=== PATIENT | male | born 1960 | race Hispanic/Latino ===

== ENCOUNTER 2018-05-02 11:45 | Inpatient (IN) | payer OTHER, MEDICARE ==
[2018-05-02 11:45] VITALS: BMI 35.0
[2018-05-02 12:51] LABS: URINE BILIRUBIN NEGATIVE (NEGATIVE); URINE BLOOD NEGATIVE (NEGATIVE); URINE CLARITY Clear (Clear); URINE COLOR Colorless (YELLOW); URINE GLUCOSE (UA) NORMAL (Normal); URINE LEUKOCYTE ESTERASE NEG Leu/uL (Negative); URINE PROTEIN NEGATIVE (NEGATIVE); URINE UROBILINOGEN NORMAL mg/dL (0.2-1.0)
--- NOTE | 2018-05-02 12:57 | C.PDOC ---
History Of Present Illness 57 year old male presents to the ED requesting alcohol detox. Patient reports last use was this morning. Patient has already been prescreened and denies any suicidal/homicidal ideation at this time. Chief Complaint (Nursing): Substance Abuse History Per: Patient History/Exam Limitations: no limitations Onset/Duration Of Symptoms: Hrs Current Symptoms Are (Timing): Still Present Suicide/Self Injury Attempted (Context): None Modifying Factor(s): Alcohol Associated Symptoms: denies: Suicidal Thoughts, Suicidal Plan Involuntary Hold By: None Recent travel outside of the [place]: No Additional History Per: Patient Past Medical History Reviewed: Historical Data, Nursing Documentation, Vital Signs Vital Signs: Last Vital Signs Temp 98.2 F 05/02/18 12:04 Pulse 96 H 05/02/18 12:04 Resp 20 05/02/18 12:04 BP 118/76 05/02/18 12:04 Pulse Ox 95 05/02/18 12:04 - Medical History PMH: Anxiety, COPD, Depression (pt is on xanax for 5 years), HTN, Pneumonia Denies: Cardia Arrhythmia, CHF, Hypercholesterolemia, Kidney Stones, Mitral Valve Prolapse, Peripheral Edema, Chronic Kidney Disease, Sexually Transmitted Disease Surgical History: No Surg Hx Denies: Coronary Stent, Pacemaker - [facility] Procedures CARDIOPULM RESUSCITA NOS (08/01/13) CONTINUOUS INVASIVE MECHANICAL VENTILATION <96 CONSEC HRS (08/01/13) CORONAR ARTERIOGR-2 CATH (05/30/00) INCIS W REM OF FORIEGN BODY OR DEV FROM SKIN & SUBCUT TISSUE (04/20/13) INSERT ENDOTRACHEAL TUBE (08/01/13) INSERT INTERCOSTAL CATH (04/20/13) LARYGNOSCOPY AND OTH TRACHEOSCOPY (08/01/13) LEFT HEART CARDIAC CATH (05/30/00) LT HEART ANGIOCARDIOGRAM (05/30/00) PEDICLE GRAFT/FLAP NOS (07/14/01) RADICAL EXCIS SKIN LES (07/14/01) THORACENTESIS (04/20/13) Family History: States: Unknown Family Hx - Social History Hx Tobacco Use: Yes Hx Alcohol Use: Yes (10 beers daily) Hx Substance Use: No - Immunization History Hx Tetanus Toxoid Vaccination: No Hx Influenza Vaccination: Yes Hx Pneumococcal Vaccination: Yes Review Of Systems Psych: Positive for: Other (alcohol detox ). Negative for: Suicidal ideation Physical Exam - Physical Exam Appears: Non-toxic, No Acute Distress Skin: Normal Color, Warm, Dry Head: Atraumatic, Normacephalic Eye(s): bilateral: Normal Inspection Oral Mucosa: Moist, Other (alcohol on breath ) Neck: Supple Chest: Symmetrical, No Deformity, No Tenderness Cardiovascular: Rhythm Regular Respiratory: Normal Breath Sounds Extremity: Normal ROM Neurological/Psych: Oriented x3, Normal Speech, Normal Cognition, Other (calm, cooperative ) ED Course And Treatment - Laboratory Results Result Diagrams: 05/02/18 13:07 05/02/18 13:07 O2 Sat by Pulse Oximetry: 95 (on RA ) Pulse Ox Interpretation: Normal Progress Note: Bloodwork and urinalysis ordered and reviewed. Patient is medically cleared and is stable for detox admission. 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 Disposition - Disposition Disposition: HOSPITALIZED Disposition Time: 14:00 Condition: STABLE - Clinical Impression Clinical Impression: Alcohol dependence - PA / [employer]GUARD / Resident Statement MD/DO has reviewed & agrees with the documentation as recorded. - Scribe Statement The provider has reviewed the documentation as recorded by the Scribe (Radha Elizabeth) All medical record entries made by the Scribe were at my direction and personally dictated by me. I have reviewed the chart and agree that the record accurately reflects my personal performance of the history, physical exam, medical decision making, and the department course for this patient. I have also personally directed, reviewed, and agree with the discharge instructions and disposition. Decision To Admit - Pt Status Changed To: Hospital Disposition Of: Inpatient - Admit Certification Admit to Inpatient:: After my assessment, the patient will require hospitalization for at least two midnights. This is because of the severity of symptoms shown, intensity of services needed, and/or the medical risk in this patient being treated as an outpatient. - InPatient: Physician Admission Certification: I certify that this patient requires 2 or more midnights of care for the following reason:: needs more than 2 days of detox - . Bed Request Type: Detox Admitting Physician: Kira Vernon Patient Diagnosis: Alcohol dependence
[2018-05-02 13:04] LABS: BARBITURATES, UR NEGATIVE (NEGATIVE); OPIATES, UR NEGATIVE (NEGATIVE); PHENCYCLIDINE, UR NEGATIVE (NEGATIVE)
[2018-05-02 13:13] LABS: BASO % 0.5 % (0.0-2.0); EOS # 0.2 K/uL (0.0-0.7); EOS % 1.9 % (0.0-4.0); HEMOGLOBIN 16.3 g/dL (12.0-18.0); LYMPH # 1.6 K/uL (1.0-4.3); LYMPH % 16.8 % (20.0-40.0); MEAN CELL VOLUME 97.6 fL (80.0-94.0); MEAN CORPUSCULAR HEMOGLOBIN 33.4 pg (27.0-31.0); MEAN CORPUSCULAR HGB CONC 34.2 g/dL (33.0-37.0); MEAN PLATELET VOLUME 9.1 fL (7.2-11.7); MONO # 0.8 K/uL (0.0-0.8); MONO % 8.7 % (0.0-10.0); NEUT # 6.7 K/uL (1.8-7.0); NEUT % 72.1 % (50.0-75.0); RBC 4.87 Mil/uL (4.40-5.90); RED CELL DISTRIBUTION WIDTH 13.4 % (11.5-14.5); WHITE BLOOD COUNT 9.3 K/uL (4.8-10.8)
[2018-05-02 13:28] LABS: ALB/GLOB RATIO 1.7 (1.0-2.1); ALBUMIN 4.6 g/dL (3.5-5.0); ALT/SGPT 67 U/L (21-72); AST/SGOT 61 U/L (17-59); BLOOD UREA NITROGEN 13 mg/dL (9-20); CALCIUM 9.1 mg/dl (8.6-10.4); GFR NON-AFRICAN AMERICAN > 60
[2018-05-02 13:40] LABS: BENZODIAZEPINES, UR POSITIVE (NEGATIVE)
[2018-05-02] MEDS ORDERED: Albuterol HFA 90 mcg/actuation (8 g) INH PRN (15:02)
--- NOTE | 2018-05-02 15:17 | PCM.BM ---
<Torrie Herreran - Last Filed: 05/02/18 15:14> Treatment Plan Problems - Problems identified on initial assessmt anxiety related to alcohol abuse Date Initiated: 05/02/18 Time Initiated: 15:16 Assessment reference: NA Status: Active self-care deficit Date Initiated: 05/02/18 Time Initiated: 15:16 Assessment reference: NA Status: Active abnormal vital signs Date Initiated: 05/02/18 Time Initiated: 15:16 Assessment reference: NA Status: Active Treatment assets and liabiliti Patient Assests: cooperative, ADL independent, good support system, negotiates basic needs, cognitively intact Patient Liabilities: substance abuse, medical problems - Milieu Protocol Maintain good personal hygiene: daily Encourage regular showers, daily Remind patient to perform daily oral care, daily Assist patient to perform ADL's Maintain personal safety: every shift Educate patient to report safety concerns to staff, every shift Monitor environment for contraband/sharps Medication safety: Monitor for expected outcome, potential side effects: every shift, Assess barriers to learning: every shift, Assess readiness for medication education: every shift <Kira Vernon - Last Filed: 05/03/18 14:53> - Diagnosis (1) Alcohol dependence Status: Acute Interventions: 05/03/18 14:53 * Assess 7x/week regarding severity of withdrawal * Educate regarding risks, benefits, side effects and alternatives of medications * Use Motivational Interviewing for abstinence * Use CBT for relapse prevention * Medication management for withdrawal symptoms * Encourage medication assisted treatment *
[2018-05-02] MEDS ORDERED: Pneumococcal 23-Valent Vaccine IM ONE (15:30)
[2018-05-02] MEDS ORDERED: Influenza Vaccine 60 mcg/0.5 mL SYR (4YR UP) IM ONE (15:30)
[2018-05-02] MEDS: Multiple Vitamins Tab PO SCH (15:37)
[2018-05-02] MEDS ORDERED: Albuterol-Ipratrop 20 mcg/actuation (4 g) IH SCH (16:00)
[2018-05-02] MEDS ORDERED: Albuterol-Ipratrop 20 mcg/actuation (4 g) INH PRN (17:16)
[2018-05-03] MEDS: Multiple Vitamins Tab PO SCH (09:36)
[2018-05-03] MEDS: ANORO ELLIPTA 62.5 MCG/25 MCG INH SCH (10:35)
[2018-05-03] MEDS: Albuterol-Ipratrop 20 mcg/actuation (4 g) INH PRN (10:36)
[2018-05-03] MEDS: Aluminum Hydroxide/Magnesium Hydroxide Susp (30 mL) PO PRN ×2 (11:32→21:18)
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
[2018-05-04] MEDS: ANORO ELLIPTA 62.5 MCG/25 MCG INH SCH (09:32)
[2018-05-04] MEDS: Multiple Vitamins Tab PO SCH (09:33)
[2018-05-04] MEDS: Albuterol-Ipratrop 20 mcg/actuation (4 g) INH PRN (09:34)
--- NOTE | 2018-05-04 11:32 | PCM.PYCHPN ---
Psychiatric Progress Note - Psychiatric Progress Note Patient seen today, length of contact: 16 min Patient Chief Complaint: "I am not well" Problems Identified/Issues Discussed: The pt is seen, chart reviewed, case discussed with staff. The pt is compliant with medications and reports no side-effects. Symptoms are improving but needs more time to stabilize. Pt attends groups and activities. Support given, psycho-education provided. After care discussed. Medication Change: Yes (detox changes daily) Medical Record Reviewed: Yes Mental Status Examination - Cognitive Function Orientation: Person, Place, Situation, Time Memory: Intact Attention: WNL Concentration: Poor Association: WNL Fund of Knowledge: WNL - Mood Mood: Depressed - Affect Affect: Constricted - Speech Speech: Appropriate - Formal Thought Process Formal Thought Process: No Impairment - Suicidal Ideation Suicidal Ideation: No - Homicidal Ideation Homicidal Ideation: No Goal/Treatment Plan - Goal/Treatment Plan Need for Continued Stay: Discharge may exacerbated symptoms, Severe functional impairment Progress Toward Problem(s) and Goals/Treatment Plan: Taper with Librium Started on Prozac, Abilify, Clonidine. Gabapentin for augmentation As needed medications including Albuterol/Ipratropium, Maalox, and Trazodone. All risks, benefits and alternatives of the meds discussed, and the pt agreed and understood. Attend groups and activities Supportive therapy and psychoeducation MO for abstinence CBT for relapse prevention Encourage MAT, ie naltrexone or antabuse Refer to rehab or IOP, and self-help groups Teach healthy lifestyle methods, i.e. diet, exercise, meditation Smoking cessation with MO Nicotine patch Estimated Date of D/C: 05/07/18
[2018-05-04] MEDS ORDERED: Bacitracin 500 Units/gm Oint Foilpak UD TOP PRN (14:50)
[2018-05-05] MEDS: Albuterol-Ipratrop 20 mcg/actuation (4 g) INH PRN ×3 (02:03→13:53)
[2018-05-05] MEDS: ANORO ELLIPTA 62.5 MCG/25 MCG INH SCH (10:03)
[2018-05-05] MEDS: Multiple Vitamins Tab PO SCH (10:04)
[2018-05-05] MEDS: Aluminum Hydroxide/Magnesium Hydroxide Susp (30 mL) PO PRN ×2 (10:28→20:16)
--- NOTE | 2018-05-05 12:18 | PCM.PYCHPN ---
Psychiatric Progress Note - Psychiatric Progress Note Patient seen today, length of contact: 16 min Patient Chief Complaint: "I am not well" Problems Identified/Issues Discussed: The pt is seen, chart reviewed, case discussed with staff. The pt is compliant with medications and reports no side-effects. Symptoms are improving but needs more time to stabilize. Pt attends groups and activities. Support given, psycho-education provided. After care discussed. Medication Change: Yes (detox changes daily) Medical Record Reviewed: Yes Mental Status Examination - Cognitive Function Orientation: Person, Place, Situation, Time Memory: Intact Attention: WNL Concentration: Poor Association: WNL Fund of Knowledge: WNL - Mood Mood: Depressed - Affect Affect: Constricted - Speech Speech: Appropriate - Formal Thought Process Formal Thought Process: No Impairment - Suicidal Ideation Suicidal Ideation: No - Homicidal Ideation Homicidal Ideation: No Goal/Treatment Plan - Goal/Treatment Plan Need for Continued Stay: Discharge may exacerbated symptoms, Severe functional impairment Progress Toward Problem(s) and Goals/Treatment Plan: Taper with Librium Started on Prozac, Abilify, Clonidine. Gabapentin for augmentation As needed medications including Albuterol/Ipratropium, Maalox, and Trazodone. All risks, benefits and alternatives of the meds discussed, and the pt agreed and understood. Attend groups and activities Supportive therapy and psychoeducation OR for abstinence CBT for relapse prevention Encourage MAT, ie naltrexone or antabuse Refer to rehab or IOP, and self-help groups Teach healthy lifestyle methods, i.e. diet, exercise, meditation Smoking cessation with OR Nicotine patch Estimated Date of D/C: 05/07/18
[2018-05-06] MEDS: Albuterol-Ipratrop 20 mcg/actuation (4 g) INH PRN ×3 (06:08→14:08)
[2018-05-06] MEDS: Multiple Vitamins Tab PO SCH (10:20)
[2018-05-06] MEDS: ANORO ELLIPTA 62.5 MCG/25 MCG INH SCH ×2 (10:21→10:53)
[2018-05-06] MEDS: Aluminum Hydroxide/Magnesium Hydroxide Susp (30 mL) PO PRN (10:30)
[2018-05-07] MEDS: Aluminum Hydroxide/Magnesium Hydroxide Susp (30 mL) PO PRN (00:13)
[2018-05-07] MEDS: Albuterol-Ipratrop 20 mcg/actuation (4 g) INH PRN ×3 (00:16→09:27)
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
[2018-05-07] MEDS: Multiple Vitamins Tab PO SCH (09:17)
[2018-05-07 09:19] VITALS: BP 155/76
[2018-05-07] MEDS: ANORO ELLIPTA 62.5 MCG/25 MCG INH SCH (09:49)
[2018-05-07 10:07] VITALS: PULSE 90; RESP 16; TEMP 97.9; O2SAT 98
== END 2018-05-07 09:45 | disposition home or self-care (01) | DRG 897 ==
LOC: C.ER 11:45 → C.7D 14:00
PROVIDERS: ADMIT Psychiatry & Neurology Psychiatry; ATTEND Psychiatry & Neurology Psychiatry
PROC: GZ56ZZZ Individual Psychotherapy, Supportive (ICD-10-PCS; principal; 2018-05-02)
DX: F10.231 Alcohol dependence with withdrawal delirium (principal); Z68.1 Body mass index [BMI] 19.9 or less, adult; Y90.2 Blood alcohol level of 40-59 mg/100 ml; F19.10 Other psychoactive substance abuse, uncomplicated; F43.10 Post-traumatic stress disorder, unspecified; F17.210 Nicotine dependence, cigarettes, uncomplicated; F32.9 Major depressive disorder, single episode, unspecified; F41.0 Panic disorder [episodic paroxysmal anxiety]; I10 Essential (primary) hypertension; J44.9 Chronic obstructive pulmonary disease, unspecified; F14.11 Cocaine abuse, in remission